=== PATIENT | male | born 2000 | race Two or more races ===

== ENCOUNTER → 2021-11-26 | Emergency (ER) | payer OTHER ==
[~2021-11-26] VITALS: Ht 154.9 cm; Wt 58.1 kg
== END | disposition home or self-care (01) ==
LOC: ER 10:50
DX: S46.812A Strain of other muscles, fascia and tendons at shoulder and upper arm level, left arm, initial encounter (principal); X58.XXXA Exposure to other specified factors, initial encounter; Y93.9 Activity, unspecified; Y92.9 Unspecified place or not applicable; Y99.9 Unspecified external cause status; M62.830 Muscle spasm of back